=== PATIENT | female | born 1975 | race Caucasian/White ===

== ENCOUNTER 2023-02-15 09:18 | Outpatient (CLI) | payer OTHER | END 2023-02-15 09:40 | disposition home or self-care (01) | LOC: SONOGRAMA 09:18 | PROVIDERS: ATTEND Obstetrics & Gynecology Gynecology | DX: N93.8 Other specified abnormal uterine and vaginal bleeding (principal); R93.89 Abnormal findings on diagnostic imaging of other specified body structures; Z88.6 Allergy status to analgesic agent ==